=== PATIENT | male | born 1970 | race Caucasian/White ===

== ENCOUNTER 2022-04-27 09:11 | Outpatient (CLI) | payer MEDICAID, SELFPAY ==
--- NOTE | 2022-04-27 | EST_ITS ---
Patient Info Name: Anderson Powell Age: 52 years : 1970 Gender: Male Ht: 68 in Wt: 140 lbs BSA: 1.74 m2 HR: 87 bpm BP: 138 / 87 mmHg Heart Rhythm: Sinus Rhythm Exam Date: 04/27/2022 9:25 AM Exam Location: [facility] Stress Patient Status: Outpatient Admit Date: 04/27/2022 Staff Ordering Physician: ChristianneKarishma Attending Provider: MarjanKarishma Exercise Technologist: Trisha Maldonado CT Exercise Physician: Flaquito Valdez DO Exam Type: CA stress test treadmill Study Info Indications R06.09 - Other forms of dyspnea A regadenoson stress test was performed. Summary 1. 1. Negative Deon exercise stress test for ischemic ST changes by ECG criteria. 2. 2. Reduced functional capacity, achieving 6.8 METs of workload. 3. 3. Appropriate HR response to exercise. 4. 4. Appropriate HR recovery at 1 minute post exercise. 5. 5. No imaging with stress testing. 6. 6. Patient informed of the above results. Protocol: Deon Stress ECG Details Stage: REST Duration (min): 0 min : 59 sec Speed (mph): 0.0 Grade (%): 0 HR (bpm): 88 SBP (mmHg): 138 DBP (mmHg): 87 METS: --- Stage: REST Duration (min): 17 min : 38 sec Speed (mph): 0.0 Grade (%): 0 HR (bpm): 97 SBP (mmHg): 138 DBP (mmHg): 87 METS: --- Stage: STAGE 1 Duration (min): 1 min : 0 sec Speed (mph): 1.7 Grade (%): 10 HR (bpm): 118 SBP (mmHg): 138 DBP (mmHg): 87 METS: --- Stage: STAGE 1 Duration (min): 2 min : 0 sec Speed (mph): 1.7 Grade (%): 10 HR (bpm): 133 SBP (mmHg): 138 DBP (mmHg): 87 METS: --- Stage: STAGE 1 Duration (min): 3 min : 0 sec Speed (mph): 1.7 Grade (%): 10 HR (bpm): 132 SBP (mmHg): 143 DBP (mmHg): 80 METS: --- Stage: STAGE 2 Duration (min): 1 min : 0 sec Speed (mph): 2.5 Grade (%): 12 HR (bpm): 142 SBP (mmHg): 143 DBP (mmHg): 80 METS: --- Stage: STAGE 2 Duration (min): 1 min : 11 sec Speed (mph): 2.5 Grade (%): 12 HR (bpm): 144 SBP (mmHg): 143 DBP (mmHg): 80 METS: --- Stage: RECOVERY Duration (min): 0 min : 48 sec Speed (mph): 0.0 Grade (%): 0 HR (bpm): 120 SBP (mmHg): 148 DBP (mmHg): 78 METS: --- Stage: RECOVERY Duration (min): 1 min : 48 sec Speed (mph): 0.0 Grade (%): 0 HR (bpm): 98 SBP (mmHg): 148 DBP (mmHg): 78 METS: --- Stage: RECOVERY Duration (min): 2 min : 48 sec Speed (mph): 0.0 Grade (%): 0 HR (bpm): 104 SBP (mmHg): 144 DBP (mmHg): 82 METS: --- Stage: RECOVERY Duration (min): 3 min : 9 sec Speed (mph): 0.0 Grade (%): 0 HR (bpm): 100 SBP (mmHg): 144 DBP (mmHg): 82 METS: --- Rest HR: 97 bpm Peak HR: 144 bpm Rest Sys BP: 138 mmHg Peak Sys BP: 160 mmHg Max Pred HR: 169 bpm % Max Pred HR: 85 % Target HR: 144 bpm Max RPP: 23,040 bpm*mmHg Bailey Score: -11 Terminat
== END 2022-04-27 09:12 | disposition home or self-care (01) ==
LOC: ANHCARD 09:14
PROVIDERS: PCP Physician Assistant; Visit Provider Physician Assistant
DX: R06.09 Other forms of dyspnea (principal)
CPT/HCPCS: 93017

== ENCOUNTER 2022-07-07 12:58 | Outpatient (CLI) | payer MEDICAID, SELFPAY ==
--- NOTE | 2022-07-07 | ECHO_ITS ---
Patient Info Name: Anderson Powell Age: 52 years : 1970 Gender: Male Ht: 68 in Wt: 145 lbs BSA: 1.78 m2 HR: 120 bpm BP: 123 / 98 mmHg Heart Rhythm: Tachycardia Technical Quality: Fair Exam Date: 07/07/2022 1:09 PM Exam Location: [facility] Pulmonary Patient Status: Outpatient Admit Date: 07/07/2022 Staff Ordering Physician: MarjanKarishma Cutter Operator Tile: Carmenza Connelly RDCS Attending Provider: MarjanKarishma Exam Type: CA echo doppler color flow Study Info Indications R06.09 - Other forms of dyspnea Complete two-dimensional, color flow and Doppler transthoracic echocardiogram is performed. Summary 1. Complete two-dimensional, color flow and Doppler transthoracic echocardiogram is performed. 2. Left ventricular chamber dimension is mildly enlarged. 3. Left ventricular systolic function is mildly reduced, estimated at 40-45%. Of note, patient is tachycardic during this study. 4. The left ventricular diastolic function is grade I diastolic dysfunction. 5. Global longitudinal strain is abnormal at -15 %. 6. Right ventricular systolic function is normal. 7. No significant valvular disease. Left Ventricle Left ventricular chamber dimension is mildly enlarged. Left ventricular systolic function is mildly reduced, estimated at 40-45%. Of note, patient is tachycardic during this study. There is no increased left ventricular wall thickness. The left ventricular diastolic function is grade I diastolic dysfunction. Global longitudinal strain is abnormal at -15 %. Right Ventricle Right ventricular chamber dimension is normal. Right ventricular systolic function is normal. Left Atria Left atrial chamber dimension is normal. Right Atria Right atrial chamber dimension is normal. Atrial Septum Intact interatrial septum visualized by color flow imaging. Aortic Valve The aortic valve is not well visualized. There is no aortic valve stenosis. There is no aortic valve regurgitation. Mitral Valve The mitral valve has normal leaflets. There is no mitral valve stenosis. There is no mitral valve regurgitation. Tricuspid Valve There is trace tricuspid valve regurgitation. Pericardium/Pleural There is no pericardial effusion. Inferior Vena Cava Normal inferior vena cava with >50% collapse upon inspiration consistent with normal right atrial pressure, 3 mmHg. Aorta The aortic root size at the sinus of Valsalva is normal. Left Ventricular Outflow Tract Name Value Normal LVOT 2D LVOT Diameter 2.0 cm LVOT Doppler LVOT Peak Gradient 6 mmHg LVOT Mean Gradient 3 mmHg LVOT VTI 17 cm LVOT VTI/AV VTI Ratio 1.0 LVOT Stroke Volume 54 ml LVOT CO 6.5 l/min LVOT CI 3.7 l/min/m2 Pulmonic Valve Name Value Normal
--- NOTE | 2022-07-07 15:48 | WPDPFTINT ---
PFT Procedure Performed PFT Procedure Performed Plethysmography (Lung Vol) Diffusing Cap (DLCO) Flow Vol Loop Spirometry w/o Bronchodil PFT Interpretation This is a pulmonary function test with spirometry, plethysmography and diffusing capacity. The test was performed and results interpreted in accordance with the 2019 and 2005 ATS/ERS Task Force guidelines respectively using the Global Lung Function Initiative-2012 reference equations. Patient demonstrated good effort and cooperation. Reproducibility criteria were met. The quality of the spirometry maneuver was Grade B. Findings: Spirometry: There is decreased maximal expiratory airflow at all lung volumes with concave expiratory flow tracing. The FVC is 4.59 L, 99% predicted. The FEV1 is 2.90 L, 79% predicted. The FEV1: FVC ratio 63%. Plethysmography: The total lung capacity is 7.72 L, 117% predicted. The functional residual capacity is 4.93 L, 148% predicted. The residual volume is 3.11 L, 159% predicted. Diffusion capacity: The diffusing capacity unadjusted for hemoglobin and carboxyhemoglobin is 20.6, 70% predicted. The diffusing capacity adjusted for alveolar volume is 3.81, 82% predicted. Impression: There is a mild obstructive abnormality with a normal FEV1. The increase in residual volume is consistent with air trapping from an obstructive abnormality. Hyperinflation is present as demonstrated by the increase in functional residual capacity and is consistent with an obstructive abnormality. The diffusing capacity unadjusted for hemoglobin and carboxyhemoglobin is mildly decreased and normalizes when adjusted for alveolar volume. There are no prior studies for comparison
== END 2022-07-07 12:59 | disposition home or self-care (01) ==
LOC: ANHPFT 13:00
PROVIDERS: PCP Physician Assistant; Visit Provider Physician Assistant
DX: R06.09 Other forms of dyspnea (principal); R94.2 Abnormal results of pulmonary function studies; R94.31 Abnormal electrocardiogram [ECG] [EKG]; I51.7 Cardiomegaly
CPT/HCPCS: 93306; 94375; 94726; 94729

== ENCOUNTER 2022-08-26 03:19 | Emergency (ER) | payer MEDICAID, SELFPAY ==
--- NOTE | ~2022-08-26 | XR_ITS ---
EXAMINATION: XR chest 2V DATE: 08/26/2022 04:15 INDICATION: Left-sided chest pain TECHNIQUE: PA and lateral views of the chest were obtained. COMPARISON: None FINDINGS: Mild hyperexpansion of lungs with increased lucency and architectural distortion in the upper lung zo john consistent with severe emphysema. Mild linear atelectasis/scarring the right upper lung zone. Wit h airspace opacities, pulmonary edema, pleural effusion or pneumothorax. The cardiomediastinal silhou ette is normal. Mild anterior wedging of a couple mid thoracic vertebral bodies. IMPRESSION: 1. Emphysema with mild atelectasis/scarring in the right upper lung zone. Reviewed, dictated and finalized at location A.
[2022-08-26 03:33] VITALS: BP 117/85; PULSE 89; RESP 18; TEMP 37.1; O2SAT 99
--- NOTE | 2022-08-26 03:35 | ECG_ITS ---
Measurements Intervals [place] Rate: 93 P: 67 NV: 144 QRS: 43 QRSD: 102 T: 73 QT: 380 QTc: 475 Interpretive Statements SINUS RHYTHM WITHIN NORMAL LIMITS NO PREVIOUS ECG AVAILABLE FOR COMPARISON Electronically Signed On 08-26-2022 7:54:39 CDT by Anderson Dominguez M.D.
[2022-08-26 04:04] LABS: Basophils Absolute Auto 0.1 K/mm3 (0.0-0.1); Basophils Percent Auto 1.4 % (0.2-1.2); Eosinophils Absolute Auto 0.5 K/mm3 (0-0.3); Eosinophils Percent Auto 7.1 % (0-4.4); Hematocrit 42.4 % (42.0-52.0); Hemoglobin 14.9 g/dL (14.0-18.0); Immature Granulocyte Absolute 0.02 K/mm3 (0.00-0.031); Immature Granulocyte Percent A 0.3 % (0-0.5); Lymphocytes Absolute Auto 3.04 K/mm3 (0.9-3.2); Lymphocytes Percent Auto 39.8 % (18.3-44.2); Mean Corpuscular HGB Conc 35.1 g/dl (32-36); Mean Corpuscular Hemoglobin 35.6 pg (26-34); Mean Corpuscular Volume 101.2 fl (80-100); Monocytes Absolute Auto 0.6 K/mm3 (0.1-0.6); Monocytes Percent Auto 7.6 % (2.6-8.5); Neutrophils Absolute Auto 3.4 K/mm3 (1.3-6.7); Neutrophils Percent Auto 43.8 % (45.5-73.1); Platelet Count Result 196 k/mm3 (150-375); Red Blood Count 4.19 M/mm3 (4.6-6.20); Red Cell Distribution Width 12.8 % (11.5-14.5); White Blood Count 7.6 K/mm3 (4.5-10.0)
[2022-08-26 04:13] LABS: Alanine Aminotransferase 31 U/L (6-50); Albumin Level 4.2 g/dL (3.5-5.1); Alkaline Phosphatase 68 U/L (38-126); Anion Gap 10 mmol/L (8-16); Aspartate Amino Transferase 52 U/L (17-59); Bilirubin,Total 0.5 mg/dL (0.2-1.3); Blood Urea Nitrogen 6 mg/dL (9-20); Calcium 8.5 mg/dL (8.4-10.2); Carbon Dioxide 29 mmol/L (22-30); Chloride 106 mmol/L (98-107); Estimated CRCL calculation 99 ml/min; Estimated Glomerular Filt Rate > 60; Glucose 93 mg/dL (65-110); Potassium 3.5 mmol/L (3.4-5.0); Sodium 145 mmol/L (137-145)
[2022-08-26 04:24] LABS: Troponin I < 0.012 ng/mL (0.000-0.034)
[2022-08-26 06:18] VITALS: BP 104/66; PULSE 95; RESP 15; O2SAT 100
[2022-08-26 07:11] LABS: Troponin I < 0.012 ng/mL (0.000-0.034)
--- NOTE | 2022-08-26 08:09 | ED.GENADULT ---
HPI - General Adult General Chief complaint: Chest Pain Stated complaint: cp, etoh Time Seen by Provider: 08/26/22 04:14 History of Present Illness HPI narrative: This is a 52-year-old alcoholic presenting ED with a chief chief complaint of alcohol intoxication and chest pain. Patient says he has been experiencing this chest pain for 6 months. It is a stabbing pain underneath his left nipple that does not radiate, is 10/10 in intensity and occurs approximately 20 times per day. He relieves the pain by drinking alcohol and the pain is worsened by moving. He says it is worse with exertion there is no vomiting diaphoresis, shortness of breath or lower extremity edema. Patient drinks a pt of alcohol per day and has been drinking heavily today. Patient states that he has withdrawal symptoms if he stops drinking. [facility] Social History Social History (Updated 08/26/22 @ 08:12 by Maximo Aguilera MD) Social History: Patient drinks a pt of alcohol per day, smokes 2 packs cigarettes a day and uses marijuana daily Exam Narrative: APPEARANCE: patient is lying prone on the stretcher with his feet on the head rest. He is accompanied by his and he is putting his head in her lap and crying. Head: atraumatic. EYES: EOMI, NOSE: Atraumatic NECK: Trachea midline RESPIRATORY: No increased rate of breathing , clear to auscultation bilaterally CARDIOVASCULAR: RRR, no peripheral edema ABDOMINAL: Non-distended MUSCULOSKELETAl: No obvious deformities, focal exam of the chest reveals no point tenderness, overlying skin changes NEURO: Alert. Moving 4/4 extremities SKIN:: Warm, dry. Normal color PSYCHIATRIC: Normal affect Course Vital Signs Vital signs: Vital Signs Temperature 98.7 F 08/26/22 03:33 Pulse Rate 89 08/26/22 03:33 Respiratory Rate 18 08/26/22 03:33 Blood Pressure 117/85 08/26/22 03:33 Pulse Oximetry 99 08/26/22 03:33 Temperature 98.7 F 08/26/22 03:33 Pulse Rate 95 08/26/22 06:18 Respiratory Rate 15 08/26/22 06:18 Blood Pressure 104/66 08/26/22 06:18 Pulse Oximetry 100 08/26/22 06:18 Medical Decision Making [facility] Narrative Medical decision making narrative: -Presentation: 52-year-old male presenting with chronic chest pain and alcohol intoxication -DDX includes but is not limited to: ACS, chest wall pain, acute on chronic alcoholism -Co-morbidities complicating care: alcoholism -Social determinants of health: patient is unemployed. He lives with his Mel -External Chart Review: review of previous echoes, stress tests and EKGs -Hx from independent Sources: Mel - bedside -Discussion of Management/Consultants: none -Independent interpretation of studies: CBC was within normal limits. Metabolic panel was unremarkable. Troponins were negative x2 Independent EKG interpretation: Rhythm [sinus], Rate [93], [place] -[normal], [place] -[normal], QRS [narrow], QTC [normal], T waves -[negative for concerning inversions], ST Segments - [Negative for concerning elevations] Final interpretations: [Normal Sinus Rhythm] chest x-ray was interpreted as: 1. Emphysema with mild atelectasis/scarring in the right upper lung zone. Heart score is 2 Dx tests considered but not ordered:None -Procedures: non -Interventions: none -Shared decision making / Disposition: Patient's EKGs and labs are reviewed without significant high risk changes. Cardiac risk factors reviewed. Heart score is <4 and it iss reasonable for further risk stratification to be performed as outpatient. Pain was not sudden or maximal onset not tearing or ripping quality. No other signs or symptoms suggest aortic dissection. A low risk Wells criteria is noted. PE is felt to be unlikely. No pneumonia seen on evaluation today. Patient is felt to be reasonable candidate for continued evaluation as an outpatient. patient will be discharged with outpatient follow-up. -RX Vital Signs Vital Signs: Vit
[2022-08-26 08:49] VITALS: BP 110/80; PULSE 81; RESP 14; O2SAT 98
== END 2022-08-26 08:51 | disposition home or self-care (01) ==
PROVIDERS: Emergency Provider Emergency Medicine; PCP Physician Assistant
DX: R07.89 Other chest pain (principal); F17.210 Nicotine dependence, cigarettes, uncomplicated; J43.9 Emphysema, unspecified
CPT/HCPCS: 36415; 71046; 80053; 84484; 85025; 93005; 99284

== ENCOUNTER 2024-01-13 21:09 | Emergency (ER) | payer MEDICAID, SELFPAY ==
--- NOTE | ~2024-01-13 | XR_ITS ---
EXAMINATION: XR chest 2V Exam Date/Time: 01/13/2024 21:45 CDT HISTORY: CP, SOB Comparison: 08/26/2022. RESULT: Lines, tubes, and devices: None. Lungs and pleura: Emphysematous change. Multiple bullae. Bibasilar atelectasis/scar. No focal consol idation, effusion, or pneumothorax. Cardiomediastinal silhouette: Stable. Other: No acute osseous or upper abdominal finding. IMPRESSION: No acute cardiopulmonary process. Reviewed, dictated and finalized at location K.
--- NOTE | 2024-01-13 21:10 | ECG_ITS ---
Test Date: 2024-01-13 21:16:08 Measurements Intervals [place] Rate: 84 P: 62 SC: 154 QRS: 47 QRSD: 86 T: 64 QT: 363 QTc: 429 Interpretive Statements SINUS RHYTHM No previous ECG available for comparison Electronically Signed On 01-14-2024 10:39:09 CDT by Dick Wong M.D.
[2024-01-13 21:18] VITALS: BP 130/80; PULSE 80; RESP 23; TEMP 36.8; O2SAT 100
[2024-01-13 21:31] LABS: Basophils Absolute Auto 0.1 K/mm3 (0.0-0.1); Eosinophils Absolute Auto 0.5 K/mm3 (0-0.3); Eosinophils Percent Auto 4.6 % (0-4.4); Hemoglobin 12.1 g/dL (14.0-18.0); Immature Granulocyte Absolute 0.04 K/mm3 (0.00-0.031); Immature Granulocyte Percent A 0.3 % (0-0.5); Lymphocytes Absolute Auto 2.59 K/mm3 (0.9-3.2); Lymphocytes Percent Auto 22.1 % (18.3-44.2); Mean Corpuscular HGB Conc 33.6 g/dl (32-36); Mean Corpuscular Volume 101.1 fl (80-100); Mean Platelet Volume 9.9 fl (7.4-10.4); Monocytes Absolute Auto 1.3 K/mm3 (0.1-0.6); Monocytes Percent Auto 11.1 % (2.6-8.5); Neutrophils Absolute Auto 7.2 K/mm3 (1.3-6.7); Neutrophils Percent Auto 60.9 % (45.5-73.1); Platelet Count Result 315 k/mm3 (150-375); Red Blood Count 3.56 M/mm3 (4.6-6.20); Red Cell Distribution Width 14.2 % (11.5-14.5); White Blood Count 11.7 K/mm3 (4.5-10.0)
[2024-01-13 21:41] LABS: Alanine Aminotransferase 89 U/L (6-50); Albumin Level 4.1 g/dL (3.5-5.1); Alkaline Phosphatase 58 U/L (38-126); Anion Gap 11 mmol/L (4-12); Aspartate Amino Transferase 161 U/L (17-59); Bilirubin,Total < 0.1 mg/dL (0.2-1.3); Blood Urea Nitrogen 29 mg/dL (9-20); Calcium 9.3 mg/dL (8.4-10.2); Carbon Dioxide 29 mmol/L (22-30); Chloride 96 mmol/L (98-107); Estimated CRCL calculation 69 ml/min; Estimated Glomerular Filt Rate > 60; Glucose 122 mg/dL (65-110); Lipase 105 U/L (23-300); Potassium 4.1 mmol/L (3.4-5.0); Sodium 136 mmol/L (137-145)
[2024-01-13 21:43] LABS: Partial Thromboplastin Time 30.6 Seconds (22.3-36.8); Prothrombin Time 13.9 Seconds (11.1-14.7)
[2024-01-13 21:53] LABS: Troponin I < 0.012 ng/mL (0.000-0.034)
--- NOTE | 2024-01-14 05:28 | ED.CHESTPAIN ---
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 He is currently at [facility] for rehab which he states has been saving his life. Quit smoking and drinking last Monday12/30/23 upon checking in. States he has a history of SC x2, on in Spring 2022 and one Fall 2022 at [facility]; no stents but he describes troponin elevation thus NSTEMI. He has a hsitory of emphysema not on O2. Supposed to be on a rescue inhaler and on a medication inhaler that is orange and white but has been out as he was having transportation issues prior to rehab given he only has a [employer] motorcycle. He has a history of elevated heart rate for which hhe is on metoprolol. Also CHF. Also on Entresto and Jardiance. Does not follow with a commercial glazier as wasn't able to make follow up appointments. The episode of chest pain lasted 30 minutes and resolved without occurrence. He states it first felt like needles and then like a squeezing/tightness. No diagnosis of HTN. Previously told his cholesterol was borderline but no diagnosis of HLD and not on medications. No diagnosis DM, TIA/CVA. No family Hx SC <65 yo. Related Data Allergies Allergy/AdvReac Type Severity Reaction Status Date / Time No Known Allergies Allergy Verified 01/13/24 21:21 [facility] Past Medical History Medical History CHF (congestive heart failure) Emphysema, unspecified History of non-ST elevation myocardial infarction (NSTEMI) x2; Spring & Fall 2022; [facility] Family History Family History Father Cerebral aneurysm x4 Social History Social History Social History: Patient previously drank a pt of alcohol per day, smoked 2 packs cigarettes a day and used marijuana daily Smoking status: Former smoker Smoking end date: 12/30/23 Alcohol intake: former Alcohol use details: quit 12/30/23 Substance use: former Additional living arrangements comments: [facility] Gender identity (if verbalized by the patient): Male Exam Narrative: GENERAL: Well-appearing, well-nourished, and in no acute distress. HEAD: Normocephalic, atraumatic. EYES: Non injected, non icteric ENT: Nares clear, no rhinorrhea or epistaxis. NECK: Supple. CHEST: Speaking in full sentences. No respiratory distress.Non labored. Lungs CTAB without wheezes or crackles. No areas of focal consolidation. No accessory muscle usage. HEART: Regular rate and rhythm. . ABDOMEN: Soft, nondistended. EXTREMITIES: Normal range of motion. No lower extremity edema. SKIN: Warm, dry, no rash. NEURO: No focal deficits. Alert and oriented x3. PSYCH: Normal mood and affect. Course Vital Signs Vital signs: Vital Signs Temperature 98.2 F 01/13/24 21:18 Pulse Rate 80 01/13/24 21:18 Respiratory Rate 23 H 01/13/24 21:18 Blood Pressure 130/80 01/13/24 21:18 Pulse Oximetry 100 01/13/24 21:18 Oxygen Delivery Room Air 01/13/24 21:18 Temperature 98.2 F 01/13/24 21:18 Pulse Rate 72 01/14/24 06:25 Respiratory Rate 16 01/14/24 06:25 Blood Pressure 128/72 01/14/24 06:25 Pulse Oximetry 100 01/14/24 06:25 Oxygen Delivery Room Air 01/14/24 06:03 MDM - Chest Pain MDM Narrative Medical decision making narrative: Patient presents with CP that occurred while working out. Episode lasted 30 minutes and has not recurred though there is a significant delay between patient's arrival and time to ED room. In the emergency department he is afebrile with vital signs notable for mild tachypnea. Physical exam reassuring. Lung
[2024-01-14] MEDS: ASPIRIN 81 MG CHEWABLE TABLET 324 MG PO (05:44)
[2024-01-14 06:03] VITALS: O2SAT 97
[2024-01-14 06:25] VITALS: BP 128/72; PULSE 72; RESP 16; O2SAT 100
== END 2024-01-14 06:27 | disposition home or self-care (01) ==
PROVIDERS: Emergency Provider Student in an Organized Health Care Education/Training Program; PCP Physician Assistant
DX: I20.89 Other forms of angina pectoris (principal); J43.9 Emphysema, unspecified; D72.829 Elevated white blood cell count, unspecified; D53.9 Nutritional anemia, unspecified; R79.89 Other specified abnormal findings of blood chemistry; R74.01 Elevation of levels of liver transaminase levels; I25.2 Old myocardial infarction; I50.9 Heart failure, unspecified; Z87.891 Personal history of nicotine dependence
CPT/HCPCS: 36415; 71046; 80053; 83690; 84484; 85025; 85610; 85730; 93005; 99284; A9270

== ENCOUNTER 2024-03-09 21:52 | Emergency (ER) | payer MEDICAID, SELFPAY ==
[2024-03-09] VITALS (11 sets, daily range): BP systolic 111–130; BP diastolic 66–97; PULSE 95–107; RESP 18–27; TEMP 36.5; O2SAT 94–97
--- NOTE | ~2024-03-09 | XR_ITS ---
Clinical Indication: Chest pain PA and lateral views of the chest: Comparison: 01/13/2024 Findings: The lungs are clear, without evidence of focal consolidation or pleural effusion. Stable CO PD pattern. Cardiomediastinal silhouette is within normal limits. Bones and soft tissues are unremark able. Impression: COPD. No acute abnormality. Reviewed, dictated and finalized at location . Impression: COPD. No acute abnormality.
--- NOTE | 2024-03-09 21:53 | ECG_ITS ---
Test Date: 2024-03-09 22:04:26 Measurements Intervals [place] Rate: 109 P: 0 NC: 0 QRS: 55 QRSD: 103 T: 73 QT: 337 QTc: 454 Interpretive Statements SINUS TACHYCARDIA OTHERWISE NORMAL ECG Compared to ECG 01/13/2024 21:16:08 NO DIFFERENCE Electronically Signed On 03-10-2024 09:05:49 CDT by Anderson Dominguze M.D.
[2024-03-09 22:14] LABS: Basophils Absolute Auto 0.1 K/mm3 (0.0-0.1); Basophils Percent Auto 1.1 % (0.2-1.2); Eosinophils Absolute Auto 0.4 K/mm3 (0-0.3); Eosinophils Percent Auto 4.1 % (0-4.4); Hematocrit 38.8 % (42.0-52.0); Hemoglobin 13.6 g/dL (14.0-18.0); Immature Granulocyte Absolute 0.02 K/mm3 (0.00-0.031); Immature Granulocyte Percent A 0.2 % (0-0.5); Mean Corpuscular HGB Conc 35.1 g/dl (32-36); Mean Corpuscular Hemoglobin 33.2 pg (26-34); Mean Corpuscular Volume 94.6 fl (80-100); Mean Platelet Volume 10.2 fl (7.4-10.4); Monocytes Absolute Auto 0.8 K/mm3 (0.1-0.6); Monocytes Percent Auto 8.2 % (2.6-8.5); Neutrophils Absolute Auto 5.6 K/mm3 (1.3-6.7); Neutrophils Percent Auto 54.4 % (45.5-73.1); Platelet Count Result 218 k/mm3 (150-375); Red Cell Distribution Width 13.4 % (11.5-14.5); White Blood Count 10.3 K/mm3 (4.5-10.0)
[2024-03-09] MEDS: ASPIRIN 81 MG CHEWABLE TABLET 324 MG PO (22:21)
[2024-03-09 22:25] LABS: Partial Thromboplastin Time 31.3 Seconds (22.3-36.8); Prothrombin Time 13.2 Seconds (11.1-14.7)
--- NOTE | 2024-03-09 22:34 | ED.CHESTPAIN ---
HPI - Chest Pain General Chief Complaint: Chest Pain Stated Complaint: chest pain Time Seen by Provider: 03/09/24 22:32 History of Present Illness HPI narrative: Patient is a 54-year-old male who presents to the emergency department this evening complaining of chest pain for multiple weeks. Patient does have a history of alcohol abuse and admits that he did drink some vodka approximately 3 hours ago. Patient was administered 1 sublingual nitroglycerin and full dose oral chewable aspirin by EMS prior to arrival. Patient admits to history of high blood pressure and coronary artery disease. Currently denying any nausea, vomiting, abdominal pain. Denies any fevers or chills at home. Patient also denies any shortness of breath. No additional symptoms or concerns at this time. Related Data Allergies Allergy/AdvReac Type Severity Reaction Status Date / Time No Known Allergies Allergy Verified 03/09/24 22:08 Review of Systems Review of Systems: All systems are reviewed and are negative unless stated otherwise in the HPI. [facility] Past Medical History Medical History CHF (congestive heart failure) Emphysema, unspecified History of non-ST elevation myocardial infarction (NSTEMI) x2; Spring & Fall 2022; [facility] Family History Family History Father Cerebral aneurysm x4 Social History Social History Social History: Patient previously drank a pt of alcohol per day, smoked 2 packs cigarettes a day and used marijuana daily Smoking status: Former smoker Smoking end date: 12/30/23 Alcohol intake: former Alcohol use details: quit 12/30/23 Substance use: former Additional living arrangements comments: [place] Gender identity (if verbalized by the patient): Male Exam Narrative: General: Alert, awake, afebrile, in no acute distress. HEENT: PERRL, no rhinorrhea, no post nasal drip, oropharynx clear. Cardiovascular: Tachycardic with regular rhythm, no murmurs, rubs or gallops, no peripheral edema. Respiratory: Clear to auscultation bilaterally, no tachypnea, no wheezing, no rhonchi, no rubs, no respiratory distress. Abdomen: Soft, nontender, nondistended, no rebound, no guarding, no peritoneal signs. Musculoskeletal: No joint swelling or deformity, normal muscle tone. Skin: No rashes or petechia, no signs of infection. Neurological: Alert and oriented to person, place, and time. Follows all commands. No focal deficits, speech is clear and fluent. Course Vital Signs Vital signs: Vital Signs Pulse Rate 107 H 03/09/24 22:08 Pulse Oximetry 97 03/09/24 22:08 Oxygen Delivery Room Air 03/09/24 22:08 Temperature 97.7 F 03/09/24 22:17 Pulse Rate 103 H 03/10/24 00:46 Respiratory Rate 18 03/10/24 00:46 Blood Pressure 109/74 03/10/24 00:43 Pulse Oximetry 97 03/10/24 00:46 Oxygen Delivery Room Air 03/09/24 22:08 MDM - Chest Pain MDM Narrative Medical decision making narrative: The patient was evaluated by myself in the emergency department. History is obtained from patient who is an independent historian and physical exam was performed. External medical records were reviewed at this time. IV was established and pertinent tests were ordered. Patient was administered 1 L IV fluid bolus with normal saline. EKG was obtained which revealed atrial flutter flutter/tachycardia rate of 109 beats per minute, no evidence of acute ischemia. EKG was independently interpreted by me and is currently pending official cardiology read. Laboratory results obtained revealing no acute process. Two sets of troponins were obtained and both noted to be negative. Imaging studies obtained included CXR which was independently interpreted by me revealing no acute cardiopulmonary process, which is pending final radiolo
[2024-03-09 22:39] LABS: Alanine Aminotransferase 15 U/L (6-50); Albumin Level 4.4 g/dL (3.5-5.1); Alkaline Phosphatase 75 U/L (38-126); Anion Gap 12 mmol/L (4-12); Aspartate Amino Transferase 30 U/L (17-59); Bilirubin,Total 0.5 mg/dL (0.2-1.3); Blood Urea Nitrogen 9 mg/dL (9-20); Calcium 9.1 mg/dL (8.4-10.2); Carbon Dioxide 25 mmol/L (22-30); Chloride 104 mmol/L (98-107); Estimated CRCL calculation 67 ml/min; Estimated Glomerular Filt Rate > 60; Glucose 116 mg/dL (65-110); Lipase 95 U/L (23-300); Potassium 3.8 mmol/L (3.4-5.0); Sodium 141 mmol/L (137-145)
[2024-03-09 22:50] LABS: Troponin I < 0.012 ng/mL (0.000-0.034)
[2024-03-09] MEDS: SODIUM CHLORIDE 0.9% IV 1,000 ML 999 ML IV CONT (22:50)
[2024-03-09] MEDS: FAMOTIDINE 20 MG/2 ML VIAL IV PUSH (22:50)
[2024-03-10 00:20] VITALS: PULSE 104; RESP 20
[2024-03-10 00:43] VITALS: BP 109/74; PULSE 101; RESP 20
--- NOTE | 2024-03-10 00:43 | ECG_ITS ---
Test Date: 2024-03-10 00:52:21 Measurements Intervals [place] Rate: 102 P: 40 TN: 132 QRS: 25 QRSD: 98 T: 68 QT: 357 QTc: 467 Interpretive Statements SINUS TACHYCARDIA OTHERWISE NORMAL ELECTROCARDIOGRAM Compared to ECG 03/09/2024 22:04:26 No significant changes Electronically Signed On 03-10-2024 09:07:02 CDT by Anderson Dominguez M.D.
[2024-03-10 00:44] VITALS: PULSE 101; RESP 20
[2024-03-10 00:46] VITALS: PULSE 103; RESP 18; O2SAT 97
[2024-03-10 01:13] LABS: Troponin I < 0.012 ng/mL (0.000-0.034)
[2024-03-10 01:38] VITALS: BP 107/76; PULSE 101; RESP 16; O2SAT 97
== END 2024-03-10 01:39 | disposition home or self-care (01) ==
PROVIDERS: Emergency Provider Emergency Medicine; PCP Physician Assistant
DX: R07.9 Chest pain, unspecified (principal); F10.10 Alcohol abuse, uncomplicated; Y90.9 Presence of alcohol in blood, level not specified; I50.9 Heart failure, unspecified; I25.2 Old myocardial infarction; J43.9 Emphysema, unspecified; Z87.891 Personal history of nicotine dependence; R00.0 Tachycardia, unspecified
CPT/HCPCS: 36415; 71046; 80053; 83690; 84484; 85025; 85610; 85730; 93005; 96361; 96374; 99284; A9270; J7030